=== PATIENT | male | born 1990 | race Caucasian/White ===

== ENCOUNTER → 2022-02-01 | Outpatient (CLI) | payer OTHER, SELFPAY ==
--- NOTE | 2022-02-18 17:29 | WPDHOMESLEEP ---
Sleep Study - Home Unattended Date of Study: 02/01/22 Ordering Provider: Roxie Camejo NP Interpreting Provider: Luz Bedolla, DO Home Sleep Study Type: Watch OBB Height: 1.91 m Weight: 113.398 kg Body Mass Index: 31.2 Neck Circumference (inches): 15.75 [place]: 11 Reason for Sleep Study Loud snoring Sleep History The patient is a 32-year-old male seasonal allergies had a sleep study ordered his primary care for evaluation of sleep apnea. The patient denies awakening from sleep short of breath. He denies awakening at night with heartburn, belching or cough. He constantly snores loud enough that others complain. He occasionally has trouble sleeping when he has a cold. He denies waking up gasping for air throughout the night. He rarely has breathing problems at night observed by himself or others. He denies sweating excessively at night. He denies having heart palpitations or irregular heartbeats during the night. He denies falling asleep during the day and while driving. He denies sleep paralysis, cataplexy and hypnagogic / hypnopompic hallucinations. He rarely has trouble at school or work due to sleepiness. He denies feeling afraid of going to sleep. He rarely has nightmares. He rarely remembers his dreams. He occasionally has thoughts racing through his mind. He rarely feels sad or depressed. He rarely has anxiety. He rarely has muscular tension. He rarely notices parts of his body jerk. He rarely kicks during the night. He rarely has crawling and aching feelings in his legs but denies having leg pain during the night. He denies grinding his teeth during sleep and awakening with morning jaw pain. He denies being bothered by pain during the day and denies being awakened by pain during the night. He frequently wakes up feeling stiff in the morning. He frequently wakes up with sore or achy muscles. He occasionally wakes up with pain in the neck, spine and other joints. The patient goes to bed at 10:30 p.m. on both weekdays and weekends. It takes him 15 minutes to fall asleep. He wakes up 2 times throughout the night to take care of the dog or his kids. He is able to fall back asleep within 30 minutes. He wakes up at 6:00 a.m. on weekdays and at 8:00 a.m. on the weekends. He typically gets less than 6 hours of sleep per night. He will stay in bed for 15 minutes after waking up in the morning. He currently lives with his and 2 children. He denies consuming any caffeinated beverages within 2 hours of bedtime. He does not engage in physical exercise before bedtime. He will read before falling asleep. He denies watching television before falling asleep. He will take naps in the afternoon or the evening but they are not refreshing. He drinks less than 3 caffeinated beverages per day. He denies tobacco, alcohol and recreational drug use. [facility] Past Medical History Medical History BMI 32.0-32.9,adult Encounter to establish care Hypersomnia Low back pain with right-sided sciatica Pet allergy Right ankle pain Seasonal allergies Snoring Surgical History Surgical History Hx of hand surgery hx right broken hand pins placed Social History Social History Smoking status: Never smoker Alcohol intake: never Substance use: never Medications Home Medications Medication Instructions Recorded Confirmed Type cetirizine 10 mg tablet (Zyrtec) 10 mg PO DAILY 11/23/21 11/23/21 History Sleep Procedure The sleep study was completed using minicabitT a technically adequate device with seven channels: peripheral arterial tone, actigraphy, body position, snore, respiratory movement, pulse oximetry, sleep staging, and heart rate. Prior to using the device, the patient received verbal and written instructions for its application an
[2022-02-18 17:39] VITALS: BMI 31.2
== END | disposition home or self-care (01) ==
PROVIDERS: PCP Nurse Practitioner Family; Visit Provider Nurse Practitioner Family
DX: G47.33 Obstructive sleep apnea (adult) (pediatric) (principal); G47.10 Hypersomnia, unspecified; R06.83 Snoring
CPT/HCPCS: 95800

== ENCOUNTER 2022-03-04 08:00 | Outpatient (RCR) | payer OTHER, SELFPAY ==
--- NOTE | 2021-12-25 09:10 | PTOPEVAL ---
Thank you for referring Benjamin Langston to [facility].? He is scheduled to be seen for therapy? 1x/week for 4 weeks. Please review, sign, date and return this plan of care REMBERTO. I agree with and certify that the following plan of care is medically necessary. Referring Physician Date Attending Provider: VIJAYA Zacarias Past Medical History Source of Past Medical History Patient Neurological History Hx Neurological Disorders No Significant History Cardiovascular History Hx Cardiac Disorders No Significant History Respiratory History Hx Respiratory Disorders No Significant History Gastrointestinal History Hx Gastrointestinal Disorders No Significant History Genitourinary History Hx Genitourinary Disorders No Significant History Musculoskeletal History Hx Other Musculoskeletal Disorders Yes: R hand fx; L shoulder pain, B ankle sprain- no fractures; Hematological History Hx Hematological Disorders No Significant History Endocrine History Hx Endocrine Disorders No Significant History Evaluation Information Diagnosis lumbago, sciatica; ankle and foot pain Onset about 6 months ago Additional Evaluation Detail has orders for back and ankle pain--reports back pain comes and goes- sitting too long; ankles are more bothersome to him--wants to start with treatment on his ankles; Subjective Information chronic issues with his ankles Query Text:As Reported By Patient/ - multiple sprains, ankle pain Family ; active played football and basketball; have not seen ortho dr for ankles recently; did see one about 8 yr ago; Diagnostic Tests X-Rays For This Problem No MRI For This Problem No Other Tests For This Problem No Previous Treatments Previous Treatments For This Problem no previous PT for ankles; have been to chiropractor for ankles Activity Level (Last 3 Months) Occupation IT- computer work Additional Prior Level of Function can do all home and work tasks Comments increase pain; does gastroc stretch and light band resistance- once day; active lifestyle, play basket ball, golf, softball--with increased pain and limits activity when ankles hurting; Pain Assessment Pain Scale Used Numeric (1 - 10) Self Report Pain Assessment Bilateral Ankle(
--- NOTE | 2022-01-11 10:27 | PCPTNOTE ---
Patient called & cancelled scheduled appointment this date due to being sick.
--- NOTE | 2022-01-24 08:56 | PTOPEVAL1 ---
Assessment and note entered by Nirmala Mcintyre, PT Evaluation Information Assessment Status Evaluation Diagnosis low back pain; R ankle pain Subjective Information Benjamin reports: ankles are doing great; need to start working on back; playing softball slid into base head first, increased back pain and when playing basketball, got hit from behind at hips; chronic back pain usually on R side; have TENS unit at home, heat and stretching usually helps; have not had any imaging on back; have not had any ortho care for back; had chiropractor treatment in past that helped and got me started on TENS; Reported Pain Level Pain Score 0,6: Self Report Additional Pain Score Comments ankle pain range 0-2/10- sore and stiff after doing more; have been playing softball without any issues with ankle back pain 1-8/10 range; reported tolerance sitting 10 min; walking can ease pain, but hard to do if stiff from sitting; change position frequently with sleeping, side/side/back Assessment PT Clinical Summary Benjamin has had 4 PT sessions for R ankle pain. His ankle pain has decreased, strength has improved and ankle goals were achieved. Discontinue ankle treatment. His order included the diagnosis of back pain. The evaluation for his back was completed; He reports chronic back pain, increased recently with playing basketball and softball. With the evaluation, he has tightness and imbalance over R hamstring, quad/anterior hip muscles with weakness over gluts, lumbar extension ; and flat lumbar spine. Skilled PT treatment is indicated for therapeutic exercises to increase the flexibility of his hips and trunk and strengthening of the areas. Modalities PRN for pain control and education for HEP and posture correction. Plan of Care Interventions Hot Pack/Cold Pack,Manual Therapy,Mechanical Traction,Patient/Caregiver Education,Therapeutic Activities,Therapeutic Exercise PT Services Indicated Yes Treatment Frequency and 1x/wk for 6 weeks Duration These treatments will address the objective and functional deficits as defined above. The patient will be advanced safely and appropriately in order for the patient to progress towards his/her prior level of function. Additional exercise
--- NOTE | 2022-02-11 09:04 | PCPTNOTE ---
Patient called & cancelled scheduled appointment this date due to not being able to make it.
--- NOTE | 2022-03-04 08:33 | PTOPDC ---
Assessment and note entered by Nirmala Mcintyre, PT Evaluation Information Assessment Status Discharge Diagnosis low back pain; R ankle pain Subjective Information Benjamin reports: doing good--back is better, ankles good too; went on a 1 & 1/2 mile hike yesterday with his daughter on his back in a backpack hayes; doing the home exercises without any problems; Reported Pain Level Pain Score Self Report Additional Pain Score Comments no back pain that he could recall in the past week; doing everything he needs to do; sitting is not limited due to pain; Assessment PT Clinical Summary Benjamin has received 8 PT sessions, for his ankle and back pain. Compared to the last reeval for his back--he has improved in all areas: pain decreased, increased sitting tolerance; increase trunk and hip strength & flexibility; increased body mechanics and awareness of posture, indep with HEP; The goals were achieved, except flexibility of R piriformis. Discharge PT services, to continue with his home exercise program and body mechanics correction. Plan of Care PT Services Indicated No
== END 2022-03-04 15:10 | disposition home or self-care (01) ==
LOC: ANHPT 08:00
PROVIDERS: PCP Nurse Practitioner Family; Visit Provider Nurse Practitioner Family
DX: M54.41 Lumbago with sciatica, right side (principal); M25.571 Pain in right ankle and joints of right foot
CPT/HCPCS: 97110; 97112; 97161; 97530

== ENCOUNTER → 2025-01-27 08:31 | Outpatient (CLI) | payer OTHER, SELFPAY ==
--- OUTSIDE RECORDS SUMMARY | 2016-08-26 03:51 | XMS_ITS | Continuity of Care Document ---
Author Organization [facility] Address [id number] [place] [phone] Phone Care Team Providers Care Financial Administration Officer Name Role Phone Sarath Kendall MD Unavailable Unavailable Allergies, Adverse Reactions, Alerts Substance Reaction Status Criticality No Known Allergies Active No Inform ation Medications Medication Instructions Dosage Effective Dates (start - stop) Status Comments cetirizine 10 mg tablet take 1 tablet by oral route every evening 10 MG - Active fluticasone 50 mcg/actuation nasal spray,suspension spray 2 spray by intranasal route every day in each nostril 100 MCG - Active ProAir RespiClick 90 mcg/actuation breath activated inhale 2 puff by inhalation route every 4 - 6 hours as needed 180 MCG - Active minocycline 50 mg capsule take 1 capsule by oral route every 12 hours 50 MG - Active Advance Directives Directive Yes / No Effective Date File Name No Information Encounters Encounter Description Practice Location Reason(s) For Visit Diagnoses Date Provider Providers Copied on Encounter [facility], [address], [place], [place], [id number] , [place] tel: [phone] [facility] No Information Enoch Clemens. [address], [id number] , . tel: [phone] [facility], [address], [place], [place], [id number] , [place] tel: [phone] [facility] Mild intermittent asthma without complicationAllergi c rhinitis due to pollenHouse dust mite allergyAllergic rhinitis due to animal hair and danderAllergy to mold Jul-0 6 Satnam Laurie . [address] [place] [address], [id number] , . tel:[phone] Referring Provider: Sarath Kendall, [address], [address] . tel:[phone] Family History Family Member Type Diagnosis Age At Onset No Information Payers Payer name Insurance type Covered democrat ID Authormildred lambdominguez(s) [facility] [id number] Social History Type Description Quantity Date Captured Comments Sex Male Smoking Status No Information Chief Complaint And Reason For Visit No Information Reason For Referral Reason For Referral No Information History Of Present Illness Encounter Date Complaint History Of Prese nt Illness No Information Functional Status Date Functional Assessmen t No Information Medications Administered Medication Instructions Dosage Effective Dates (start - stop) Status Comments No Drug Therapy Prescribed Instructions Date Instruction Additional Infor mation No Information Assessments Type Assessment Date No Information Patient Care Teams Name Effective Dates (start - stop) Status Members No Information
--- NOTE | ~2025-01-27 | XR_ITS ---
EXAMINATION: XR heel LT min 2V, 01/27/2025 8:40 CDT HISTORY: M76.61 - Achilles tendinitis, right leg COMPARISON: No comparisons available. Findings: No acute fracture or malalignment. No significant degenerative changes. Soft tissues unremarkable. Impression: No acute fracture or malalignment. Reviewed, dictated and finalized at location A. Impression: No acute fracture or malalignment.
--- NOTE | ~2025-01-27 | XR_ITS ---
EXAMINATION: XR heel RT min 2V, 01/27/2025 8:46 CDT HISTORY: M76.61 - Achilles tendinitis, right leg COMPARISON: No comparisons available. Findings: No acute fracture or malalignment. No significant degenerative changes. Soft tissues unremarkable. Impression: No acute fracture or malalignment. Reviewed, dictated and finalized at location A. Impression: No acute fracture or malalignment.
== END ==
LOC: EXPTRAD 08:32
PROVIDERS: PCP Nurse Practitioner Family; Visit Provider Nurse Practitioner Family
DX: M76.61 Achilles tendinitis, right leg (principal); M76.62 Achilles tendinitis, left leg
CPT/HCPCS: 73650

== ENCOUNTER 2025-02-24 14:15 | Outpatient (RCR) | payer OTHER, SELFPAY ==
--- NOTE | 2025-01-20 16:48 | OPREHPOC ---
Outpatient Therapy Plan of Care This is a Multidisciplinary Plan of Care that may contain components documented by all disciplines (PT, OT, and ST.) PT Problem 1 PT Problem #1 Knowledge Deficit PT Goal 1 Goal / Goal Update Pt. will demo good understanding of diagnosis and prognosis, HEPs. Target Visit 6 PT Problem 2 PT Problem #2 Pain PT Goal 1 Goal / Goal Update Pt will report?improved pain of 1-2/10 at worst when performing squats and single leg standing; 0 pain level at rest. Target Visit 6 PT Problem 3 PT Problem #3 Impaired Flexibility PT Goal 1 Goal / Goal Update Pt will demo improved lumbar lateral flexion and rotation ROM without increased discomfort. Target Visit 8 PT Problem 4 PT Problem #4 Impaired Functional Mobility
--- NOTE | 2025-01-20 16:49 | PTOPEVAL1 ---
Assessment and note entered by Shaina Guy, PT Evaluation Information Assessment Status Evaluation Diagnosis M54.50, M79.604, M79.605 ICD-10 Condition Codes (PT) Pain in low back M54.50,Radiculopathy, thoracolumbar region M54.15,Radiculopathy, lumbar region M54.16,Pain in right hip M25.551,Pain in left hip M25.552,Difficulty Walking R26.2, Abnormalities of gait and mobility R26.9,Weakness R53.1 Onset 2-3 months ago Subjective Information Reports have been having sciatica. low back pain radiating to both LEs up and down, generally the hamstrings area. Stabbing, tingling pain, shock- like rebekah when sitting too long, or moving the wrong way about 7/10 at worst. Moving around, stretching helps to reduce pain. Lowest pain is a 1/10, does not disturb sleep recently but 3 months ago when it first started was affecting sleep. Assessment PT Clinical Summary Pt presents to therapy with c/o pain to back radiating down to BLEs, impacting sleep and functional mobility rebekah ambulation. Noted muscle tightness and decreased muscle control and stability to B hip abductors. He will benefit from skilled PT to reduce pain, improve hamstrings flexibility, improve lumbar stability and core strength, education on proper body mechanics and postural awareness when performing weight lifting in order to address deficits and prevent further injuries. Plan of Care Interventions Check Out for Orthotic/Prosthetic,Electrical Stimulation,Gait Training,Hot Pack/Cold Pack, Manual Therapy,Neuro Re-education,Patient/ Caregiver Education,Therapeutic Activities, Therapeutic Exercise,Ultrasound Other Interventions IASTM, Taping PT Services Indicated Yes Treatment Frequency and 1-2x/wk x 8 visits Duration These treatments will address the objective and functional deficits as defined above. The patient will be advanced safely and appropriately in order for the patient to progress towards his/her prior level of function. Additional exercises will be introduced and as well as a comprehensive home exercise program upon discharge, if needed, ?to ensure carryover of functional gains achieved in the clinic. This treatment plan has been reviewed and agreement upon by the patient.
--- NOTE | 2025-02-24 15:21 | PTOPDC ---
Assessment and note entered by Shaina Guy, PT Discharge Information Assessment Status Discharge Diagnosis M54.50, M79.604, M79.605 ICD-10 Condition Codes (PT) Pain in low back M54.50,Radiculopathy, thoracolumbar region M54.15,Radiculopathy, lumbar region M54.16,Pain in right hip M25.551,Pain in left hip M25.552,Difficulty Walking R26.2, Abnormalities of gait and mobility R26.9,Weakness R53.1 Onset 2-3 months ago Subjective Information Pt reports pain to lowback and buttocks area is non-existent anymore, sat for 4 hours straight for work meetings and documentation, did not feel any pain, noticed tightness and stiffness but relieved with stretching and not persistent. Reported Pain Level Pain Score 0: Self Report Assessment PT Clinical Summary Pt presents to therapy with c/o pain to back radiating down to BLEs, impacting sleep and functional mobility rebekah ambulation. Noted muscle tightness and decreased muscle control and stability to B hip abductors. He will benefit from skilled PT to reduce pain, improve hamstrings flexibility, improve lumbar stability and core strength, education on proper body mechanics and postural awareness when performing weight lifting in order to address deficits and prevent further injuries. Plan of Care PT Services Indicated No
--- NOTE | 2025-02-24 16:52 | PTOPDC ---
Assessment and note entered by Shaina Guy, PT Discharge Information Assessment Status Discharge Diagnosis M54.50, M79.604, M79.605 ICD-10 Condition Codes (PT) Pain in low back M54.50,Radiculopathy, thoracolumbar region M54.15,Radiculopathy, lumbar region M54.16,Pain in right hip M25.551,Pain in left hip M25.552,Difficulty Walking R26.2, Abnormalities of gait and mobility R26.9,Weakness R53.1 Onset 2-3 months ago Subjective Information Pt reports pain to lowback and buttocks area is non-existent anymore, sat for 4 hours straight for work meetings and documentation, did not feel any pain, noticed tightness and stiffness but relieved with stretching and not persistent. Reported Pain Level Pain Score 0: Self Report Assessment PT Clinical Summary Pt received 9 treatment sessions and demos good progress with therapy. Demos good gains in active ROM and strength, reports pain is completely relieved. Excellent progress noted in Modified Oswestry back Scale and LEFs score indicating improved functional mobility. Compliant with HEPs and agreeable to DC at this time. Skilled PT discontinued. Plan of Care PT Services Indicated No
== END 2025-03-07 14:39 | disposition home or self-care (01) ==
LOC: ANHPT 14:15
PROVIDERS: PCP Nurse Practitioner Family; Visit Provider Family Medicine
DX: M54.50 Low back pain, unspecified (principal); M79.604 Pain in right leg; M79.605 Pain in left leg
CPT/HCPCS: 97110; 97112; 97140; 97161; 97530; 97750